=== PATIENT | female | born 1955 | race Caucasian/White ===

== ENCOUNTER → 2017-11-01 15:22 | Outpatient (CLI) | payer BC, MEDICARE, SELFPAY ==
--- NOTE | 2017-11-01 15:33 | MM_ITS ---
. MM Dig screening mamm BI w/CAD CAD Screening ORDERING PHYSICIAN : Federico Dumont PATIENT AGE: 62 years GENDER: Female COMPARISON: Previous mammograms: February 2012, November 2015, May 2009 INDICATION: Routine screening. Does taking female hormones previous biopsy right breast TECHNIQUE: Standard CC and MLO images were obtained. R2 CAD reviewed. FINDINGS: Moderate fibroglandular elements seen diffusely throughout both breast. Yield overall moderate density breast with fibroglandular features most pronounced at the retroareolar region bilateral. RIGHT BREAST:No new areas of significant concern Initially question of possible metallic marker at upper-outer quadrant from percutaneous biopsy but this appears to be a progressing small- hyphen shaped calcification which which is slightly denser and larger over time. Minimal density here on MLO view dissipates on cc view and overall there is been a similar appearance on previous studies. Follow-up in one year would be adequate. LEFT BREAST:No new areas of significant concern Minor area of density at the the lateral left breast on cc view appears to be fibroglandular elements similar to previous studies as well as dissipates on MLO view With the moderately dense character the breast in overall pattern I would encourage and emphasized follow-up screening mammogram in one year particularly in this age patient. Self breast examination may be of benefit as well in this moderately dense breast == IMPRESSION: ===== No new areas of significant concern Moderately dense breast for age but no suspicious lesions evident on today's study However Bilateral follow-up in one year recommended and would be be encouraged & emphasized particularly in this patient BI-RADS Category: 2 Benign Finding(s) RECOMMENDED FOLLOW-UP: 1YR - 1 YEAR FOLLOW-UP (A letter has been sent to the patient regarding results of the study.)
--- NOTE | 2017-11-01 15:34 | XR_ITS ---
XR DEXA axial skeleton HISTORY: ITS.REASON: POST MENOPAUSAL ORDERING PHYSICIAN: Federico Dumont PATIENT AGE: 62 years COMPARISON: 12/09/2015 FINDINGS: The BMD measured at the Right femoral neck is 0.848 g/cm squared with a T score of -1.4. This is considered Osteopenic according to the World Health Organization criteria. Fracture risk is Moderate. Treatment is advised. L1-L4 density is normal with a T score of 0.0. The density of the lumbar spine has increased by 1.3%. The density of the hips is essentially unchanged IMPRESSION: Osteopenia with moderate fracture risk. Recommend follow-up exam October 2019
== END ==
PROVIDERS: PCP Family Medicine; Referring Provider Obstetrics & Gynecology; Visit Provider Family Medicine
DX: Z12.31 Encounter for screening mammogram for malignant neoplasm of breast (principal); Z78.0 Asymptomatic menopausal state; Z13.820 Encounter for screening for osteoporosis
CPT/HCPCS: 77067; 77080

== ENCOUNTER → 2020-05-26 13:31 | Outpatient (POV) | payer BC, MEDICARE, SELFPAY | PROVIDERS: Visit Provider Nurse Practitioner Family | DX: Z00.00 Encounter for general adult medical examination without abnormal findings (principal) ==

== ENCOUNTER → 2020-09-15 15:32 | Outpatient (POV) | payer BC, MEDICARE, SELFPAY ==
[2020-09-15 16:23] LABS: Basophils # 0.1 K/mm3 (0-0.2); Basophils % 0.8 % (0.1-2.0); Eosinophils # 0.2 K/mm3 (0.0-0.4); Eosinophils % 3.5 % (0.1-12.0); Hemoglobin 15.1 g/dL (12.2-16.2); Lymphocytes # 1.8 K/mm3 (0.7-4.5); Lymphocytes % 27.7 % (10-50); Mean Corpuscular HGB Conc 32.9 g/dL (31.8-35.4); Mean Corpuscular Hemoglobin 29.8 pg (27.0-31.2); Mean Corpuscular Volume 90.4 fl (81-99); Mean Platelet Volume 8.1 fl (7.4-10.4); Monocytes # 0.5 K/mm3 (0.1-1.0); Monocytes % 7.3 % (1.7-9.3); Neutrophils # 3.8 K/mm3 (1.8-7.8); Neutrophils % 60.6 % (37.0-80.0); Platelet Count 270 K/mm3 (142-424); Red Blood Count 5.08 M/mm3 (4.20-5.40); Red Cell Distribution Width 13.8 % (11.5-17.5); White Blood Count 6.3 K/mm3 (4.8-10.8)
[2020-09-15 17:50] LABS: Alanine Aminotransferase 19 U/L (12-78); Albumin Level 4.7 g/dl (3.5-5.0); Albumin/Globulin Ratio 1.4 (1.1-1.8); Alkaline Phosphatase 118 U/L (38-126); Anion Gap 11.8 mEq/L (5-15); Aspartate Amino Transferase 25 U/L (14-36); Bilirubin,Total 0.3 mg/dl (0.2-1.3); Blood Urea Nitrogen 23 mg/dl (7-17); Carbon Dioxide 31 mmol/L (22.0-30.0); Chloride 100 mmol/L (98-107); Chol/HDL Ratio 3.1 (1-3.5); Cholesterol 269 mg/dl (140-200); Estimated Glomerular Filt Rate 72 ml/min (>60); GFR (African American) 87 ML/MIN (>60); Globulin 3.3 g/dL (1.3-3.2); Glucose 103 mg/dl (74-100); HDL Cholesterol 86 mg/dl (40-60); Potassium 4.8 mmoL/L (3.5-5.1); Sodium 138 mmol/L (136-145); Triglycerides 169 mg/dl (30-150); VLDL Cholesterol 34 mg/dL (0-40)
[2020-09-15 18:01] LABS: Direct LDL Cholesterol 141.93 mg/dL (100-129)
[2020-09-15 18:11] LABS: Free Thyroxine Index 1.9 ug/dL (5.93-13.13); T4 (Thyroxine) 5.9 ug/dl (5.53-11.0); Triiodothryronine (T3) Uptake 32 % (23.5-40.5)
[2020-09-15 18:25] LABS: Thyroid Stimulating Hormone 4.35 uIU/mL (0.465-4.68)
== END ==
PROVIDERS: Family Medicine; Visit Provider Nurse Practitioner Family
DX: Z00.00 Encounter for general adult medical examination without abnormal findings (principal)
CPT/HCPCS: 36415; 80053; 80061; 80184; 84436; 84443; 84479; 85025

== ENCOUNTER 2022-10-22 21:18 | Emergency (ER) | payer BC, MEDICARE, SELFPAY ==
--- NOTE | 2022-10-22 21:14 | HMH.EDGENADL ---
Discharge Plan Disposition Patient Disposition: Home, Self-Care Condition: Fair Chief Complaint: Skin/Abscess/Foreign Body Prescriptions Prescriptions: No Action cyclobenzaprine 10 MG Tablet 10 mg PO DAILY theophylline 400 MG Tab.Er.24h 400 mg PO DAILY levalbuterol HCl 1.25 MG/3 ML Vial.Neb 1.25 mg PO DAILY phenobarbital 32.4 MG Tablet 32.4 mg PO DAILY paroxetine HCl [Paxil CR] 25 MG Tab.Er.24h 25 mg PO DAILY thyroid (pork) [Vincent Thyroid] 15 MG Tablet 15 mg PO DAILY fluticasone furoate-vilanterol [Breo Ellipta] 1 EACH Blst.W.Dev 1 ea inhalation DAILY meloxicam 15 MG Tablet 15 mg PO DAILY cephalexin 500 MG capsule 500 mg PO TID Qty: 30 0RF Activity Restrictions/Add. Instructions Additional Instructions/Restrictions: Follow-up with your primary care doctor in about 3 days for a wound check. If you notice any signs of infection such as redness or unusual discharge please return to the emergency department immediately. You may have your sutures removed in approximately 7 to 10 days. Keep the wounds clean and dry at all times. You may wash them briefly and or shower. Avoid soaking the wounds in a bathtub, hot tub, marion, river, ocean. You can take [id number] Tylenol and/or Motrin for your pain. Clinical Impressions Clinical Impression: Laceration Instructions Patient Instructions: DI for Laceration Repair Discharge ED Provider: Soledad Bass Adult HPI General Chief complaint: Skin/Abscess/Foreign Body Stated complaint: Goat Attack Time Seen by Provider: 10/22/22 21:14 History of Present Illness HPI narrative: The patient presents to the emergency department by ambulance after having been attacked by a goat. She complains of injuries to her buttocks, right posterior leg, and left arm. She denies any other injuries. She was ambulatory at the scene. She did not lose consciousness. Her last tetanus immunization was within the last 8 years. Related Data Home Medications Medication Instructions Recorded Confirmed cyclobenzaprine 10 mg tablet 10 mg PO DAILY Supplement 12/14/17 12/14/17 fluticasone furoate 200 1 ea inhalation DAILY Supplement 12/14/17 12/14/17 mcg-vilanterol 25 mcg/dose inhalation powder (Breo Ellipta) levalbuterol HCl 1.25 mg/3 mL 1.25 mg PO DAILY Supplement 12/14/17 12/14/17 solution for nebulization meloxicam 15 mg tablet 15 mg PO DAILY Supplement 12/14/17 12/14/17 paroxetine HCl 25 mg 25 mg PO DAILY Supplement 12/14/17 12/14/17 tablet,extended release 24 hr (Paxil CR) phenobarbital 32.4 mg tablet 32.4 mg PO DAILY Supplement 12/14/17 12/14/17 theophylline 400 mg 400 mg PO DAILY Supplement 12/14/17 12/14/17 tablet,extended release 24 hr thyroid (pork) 15 mg tablet 15 mg PO DAILY Supplement 12/14/17 12/14/17 (Vincent Thyroid) Previous Rx's Medication Instructions Recorded cephalexin 500 mg capsule 500 mg PO TID #30 caps 12/14/17 Allergies Allergy/AdvReac Type Severity Reaction Status Date / Time Formoterol Allergy Severe S-DIFF. Uncoded 06/28/17 15:21 BREATHING Phenytoin Allergy Intermediate I-RASH Uncoded 06/28/17 15:21 [facility] Disclaimer: The information contained in this section may have been updated after the patient was seen, as this information can be updated by other users. Social History Smoking Status: Never smoker alcohol intake: never Travel in the last 8 weeks: None ROS Obtained: Yes All systems reviewed & no additional complaints except as documented Physical Exam General General appearance: alert Head Head exam: atraumatic Eye Eye exam: Present normal appearance ENT ENT exam: Present normal exam Neck Neck exam: Present normal inspection, full ROM and trachea midline; Absent tenderness or meningismus Chest Chest inspection: Present normal inspection and symmetric chest wall rise; Absent tenderness Respiratory Respiratory exam: Presen
[2022-10-22 21:18] VITALS: BP 148/84; PULSE 84; RESP 19; TEMP 36.9; O2SAT 93; BMI 27.0
--- NOTE | 2022-10-22 22:30 | PC.NURSE ---
Dr. Bass at to suture wounds
[2022-10-22 23:15] VITALS: BP 131/72; PULSE 68; RESP 20; TEMP 36.7; O2SAT 95
== END 2022-10-22 23:16 | disposition home or self-care (01) ==
PROVIDERS: Emergency Provider Emergency Medicine; PCP Family Medicine
DX: S41.112A Laceration without foreign body of left upper arm, initial encounter (principal); S81.812A Laceration without foreign body, left lower leg, initial encounter; W55.32XA Struck by other hoof stock, initial encounter
CPT/HCPCS: 12005; 99283

== ENCOUNTER → 2022-12-24 09:28 | Outpatient (CLI) | payer MEDICARE, SELFPAY ==
--- NOTE | 2022-12-24 09:32 | MM_ITS ---
PROCEDURE INFORMATION: Exam: MG Bilateral Screening 3D Mammography Exam date and time: 12/24/2022 9:32 AM Age: 67 years old Clinical indication: Screening mammogram TECHNIQUE: Imaging protocol: Bilateral Screening tomosynthesis and 2D mammography including computer-aided detection (CAD) when performed. COMPARISON: 1. MG SCBI MM Dig screening mamm BI w/CAD 11/01/2017 3:41 PM 2. MG DMSB DIG MAMM-SCREEN ILAN 12/09/2015 8:47 AM 3. MG DMSB DIGITAL MAMM-SCREEN BILATERAL 02/16/2012 1:06 PM 4. MG DIGMAMMS MAMMOGRAM SCREEN-HEAD ANIMAL KEEPER N/C 05/19/2009 1:34 PM FINDINGS: MAMMOGRAPHY: Breast composition: There are scattered areas of fibroglandular density. Mass: None. Architectural distortion: No new or suspicious architectural distortion. Calcifications: No new or suspicious calcifications are present Asymmetric density: No new or suspicious asymmetric density is present Skin thickening: None. Axillary adenopathy: None. IMPRESSION: No mammographic evidence of malignancy. Recommend annual screening mammography unless otherwise clinically indicated. ASSESSMENT: BI-RADS category 1: Negative
--- NOTE | 2022-12-24 09:33 | XR_ITS ---
FINAL REPORT TECHNIQUE: Bone mineral density was calculated of the lumbar spine and hip. CLINICAL HISTORY: post menopausal FINDINGS: Using L1-4, the bone mineral density of the spine is 1.036 g/cm2, corresponding to T-score of -0.1, likely falsely elevated secondary to hypertrophic changes.. Using the left hip, the bone mineral density of the femoral neck is 0.685 g/cm2, corresponding to a T-score of -1.5. Using the right hip, the bone mineral density of the femoral neck is 0.694 g/cm2, corresponding to a T-score of -1.4. NOTE: T-score: Standard deviation compared with peak bone mass of young adult mean. *Following the recommendations of the International Society of Bone densitometry, classification of hip BMD is based on the lower of two T-scores; total hip or femoral neck. IMPRESSION: Diminished bone mineral density consistent with low bone density. FRAX data reports major osteoporotic fracture of 15% and hip fracture 1.9%. Reviewed, Interpreted and Dictated by Giovany Cooper III, MD Transcribed by Juana Nolasco Authenticated and . [facility]
== END ==
PROVIDERS: PCP Family Medicine; Visit Provider Family Medicine
DX: Z12.31 Encounter for screening mammogram for malignant neoplasm of breast (principal); Z78.0 Asymptomatic menopausal state; Z13.820 Encounter for screening for osteoporosis
CPT/HCPCS: 77063; 77067; 77080

== ENCOUNTER → 2023-02-25 14:15 | Outpatient (CLI) | payer MEDICARE, MEDICAID, SELFPAY ==
[2023-02-25 16:08] LABS: Hematocrit 44.4 % (37.0-47.0); Hemoglobin 14.5 g/dL (12.2-16.2); Mean Corpuscular HGB Conc 32.7 g/dL (31.8-35.4); Mean Corpuscular Hemoglobin 30.3 pg (27.0-31.2); Mean Corpuscular Volume 92.9 fl (81-99); Platelet Count 276 K/mm3 (142-424); Red Blood Count 4.78 M/mm3 (4.20-5.40); White Blood Count 6.2 K/mm3 (4.8-10.8)
[2023-02-25 16:56] LABS: Alanine Aminotransferase 22 U/L (12-78); Albumin Level 4.3 g/dl (3.5-5.0); Albumin/Globulin Ratio 1.4 (1.1-1.8); Alkaline Phosphatase 109 U/L (38-126); Anion Gap 10.4 mEq/L (5-15); Aspartate Amino Transferase 29 U/L (14-36); Bilirubin,Total 0.2 mg/dl (0.2-1.3); Blood Urea Nitrogen 18 mg/dl (7-17); Calcium 10.4 mg/dl (8.4-10.2); Carbon Dioxide 30 mmol/L (22.0-30.0); Chloride 102 mmol/L (98-107); Estimated Glomerular Filt Rate 83 ml/min (>60); GFR (African American) 101 ML/MIN (>60); Glucose 90 mg/dl (74-100); Potassium 4.4 mmoL/L (3.5-5.1); Sodium 138 mmol/L (136-145); Total Protein,Serum 7.3 g/dl (6.3-8.2)
[2023-02-25 17:14] LABS: T4 (Thyroxine) 6.9 ug/dl (5.53-11.0)
[2023-02-25 17:20] LABS: Amphetamine/Metha Screen,Urine Negative ng/ml (<1000)
[2023-02-25 17:21] LABS: Barbiturates Screen,Urine Positive ng/ml (<200); Benzodiazepines Screen,Urine Negative ng/ml (<200)
[2023-02-25 17:22] LABS: Cannabinoid Screen,Urine Negative ng/ml (<50)
[2023-02-25 17:23] LABS: Cocaine Screen,Urine Negative ng/ml (<300)
[2023-02-25 17:27] LABS: Thyroid Stimulating Hormone 3.47 uIU/mL (0.465-4.68)
[2023-02-25 17:47] LABS: Vitamin B12 333 pg/mL (239-931)
[2023-02-25 18:20] LABS: Methadone Screen,Urine Negative ng/ml (<300); Opiate Screen,Urine Negative ng/ml (<300)
[2023-02-25 18:21] LABS: Phencyclidine Screen,Urine Negative ng/ml (<25)
[2023-02-27 09:53] LABS: Triiodothyronine (T3) Total 101 ng/dL (71-180)
== END ==
PROVIDERS: PCP Family Medicine; Visit Provider Psychiatry & Neurology Psychiatry
DX: G47.10 Hypersomnia, unspecified (principal); F33.0 Major depressive disorder, recurrent, mild; Z79.899 Other long term (current) drug therapy; G47.33 Obstructive sleep apnea (adult) (pediatric); R06.83 Snoring
CPT/HCPCS: 36415; 80053; 80305; 82607; 84436; 84443; 84480; 85014; 85018; 85048; 85049; G0399

== ENCOUNTER → 2023-04-05 13:02 | Outpatient (CLI) | payer MEDICARE, MEDICAID, SELFPAY ==
--- NOTE | 2023-04-05 13:06 | XR_ITS ---
FINAL REPORT CLINICAL HISTORY: right shoulder pain FINDINGS: 2 views of the right shoulder were obtained. There is no prior exam for comparison. There is no fracture or dislocation. There is degenerative joint disease. Soft tissues are normal. IMPRESSION: No acute osseous abnormality of the right shoulder. Reviewed, Interpreted and Dictated by Chasity Abbott MD Transcribed by Audie Mendes Authenticated and [facility]
== END ==
PROVIDERS: PCP Family Medicine; Visit Provider Orthopaedic Surgery
DX: M25.511 Pain in right shoulder (principal)
CPT/HCPCS: 73030

== ENCOUNTER → 2023-04-13 07:29 | Outpatient (CLI) | payer MEDICARE, MEDICAID, SELFPAY ==
--- NOTE | 2023-04-13 07:29 | MR_ITS ---
FINAL REPORT CLINICAL HISTORY: right shoulder pain, limited rom, no injury COMPARISON: None FINDINGS: Multiplanar MR imaging of the right shoulder was performed without contrast. There is motion artifact on many of the images decreasing sensitivity of this exam. There is a partial-thickness articular surface supraspinatus tear greater than 50% thickness and a partial-thickness articular surface infraspinatus tendon tear greater than 50% thickness. There is mild AC joint arthrosis. A small amount of fluid is seen in the subacromial/subdeltoid bursa. There is abnormal signal at the base of the superior labrum worrisome for SLAP tear. The long head of the biceps tendon is intact. A small glenohumeral joint effusion is seen. There is thickening of the joint capsule at the axillary recess consistent with adhesive capsulitis. There is no evidence of fracture or dislocation. Subchondral cysts are noted in the superior humeral head. The musculature is intact. There is no evidence of soft tissue mass. IMPRESSION: Greater than 50% thickness tears of the supraspinatus and infraspinatus tendons. Findings worrisome for SLAP tear. Adhesive capsulitis. Reviewed, Interpreted and Dictated by Giovany Cooper III, MD Transcribed by Lisa Sosa Authenticated and [facility]
== END ==
PROVIDERS: PCP Family Medicine; Visit Provider Orthopaedic Surgery
DX: M75.81 Other shoulder lesions, right shoulder (principal); M25.511 Pain in right shoulder
CPT/HCPCS: 73221

== ENCOUNTER 2023-05-30 13:44 | Emergency (ER) | payer MEDICARE, MEDICAID, SELFPAY ==
[2023-05-30 13:51] VITALS: PULSE 95; RESP 22; TEMP 37.3; O2SAT 94; BMI 25.7
--- NOTE | 2023-05-30 14:01 | XR_ITS ---
FINAL REPORT CLINICAL HISTORY: Shortness of breath and cough COMPARISON: None FINDINGS: Two views of the chest were obtained. The heart size and pulmonary vascularity are within normal limits. The mediastinum is normal. Bibasilar pulmonary opacities are favored to represent atelectasis. There is no pneumothorax. The bony thorax is intact. IMPRESSION: Bibasilar atelectasis. Reviewed, Interpreted and Dictated by Giovany Cooper III, MD Transcribed by Lisa Sosa Authenticated and [facility]
--- NOTE | 2023-05-30 14:12 | ECG_ITS ---
APPROVED REPORT Exam: Resting ECG HR:101 bpm ECG Measurements Heart Rate 101 AXES TN 140 P 70 QRSd 72 QRS -7 QT 298 T 26 QTc 356 Conclusion SINUS TACHYCARDIA POSSIBLE LEFT ATRIAL ENLARGEMENT [-0.1mV P-WAVE IN V1/V2] INDETERMINATE AXIS LOW QRS VOLTAGE IN PRECORDIAL LEADS [QRS DEFLECTION < 1.0 mV IN CHEST LEADS] PATTERN CONSISTENT WITH PULMONARY DISEASE POSSIBLE RIGHT VENTRICULAR CONDUCTION DELAY [RSR (QR) IN V1/V2] PROBABLE INFERIOR MYOCARDIAL INFARCTION , PROBABLY OLD [35 ms Q WAVE IN II/aVF] ABNORMAL ECG UNCONFIRMED REPORT Electronically signed by : Mark Ibrahim MD 06/01/2023 17:14:36
--- NOTE | 2023-05-30 14:25 | PC.NURSE ---
rounded on pt, pt going to xray for imaging
[2023-05-30 14:30] VITALS: PULSE 97; O2SAT 94
[2023-05-30 14:33] LABS: Basophils # 0.1 K/mm3 (0-0.2); Basophils % 0.7 % (0.1-2.0); Eosinophils # 0.2 K/mm3 (0.0-0.4); Eosinophils % 3.3 % (0.1-12.0); Hematocrit 44.5 % (37.0-47.0); Hemoglobin 14.7 g/dL (12.2-16.2); Lymphocytes # 1.5 K/mm3 (0.7-4.5); Lymphocytes % 21.5 % (10-50); Mean Corpuscular Hemoglobin 30.9 pg (27.0-31.2); Mean Corpuscular Volume 93.8 fl (81-99); Mean Platelet Volume 7.9 fl (7.4-10.4); Monocytes # 0.5 K/mm3 (0.1-1.0); Monocytes % 7.7 % (1.7-9.3); Neutrophils # 4.5 K/mm3 (1.8-7.8); Neutrophils % 66.8 % (37.0-80.0); Platelet Count 242 K/mm3 (142-424); Red Blood Count 4.75 M/mm3 (4.20-5.40); White Blood Count 6.7 K/mm3 (4.8-10.8)
[2023-05-30 14:54] LABS: Alanine Aminotransferase 29 U/L (12-78); Albumin Level 4.3 g/dl (3.5-5.0); Albumin/Globulin Ratio 1.4 (1.1-1.8); Alkaline Phosphatase 116 U/L (38-126); Anion Gap 11.5 mEq/L (5-15); Aspartate Amino Transferase 42 U/L (14-36); Bilirubin,Total 0.2 mg/dl (0.2-1.3); Blood Urea Nitrogen 13 mg/dl (7-17); Calcium 10.1 mg/dl (8.4-10.2); Carbon Dioxide 29 mmol/L (22.0-30.0); Chloride 99 mmol/L (98-107); Creatinine Clearance Estimated 57 mL/min (50-200); Estimated Glomerular Filt Rate 71 ml/min (>60); GFR (African American) 86 ML/MIN (>60); Globulin 3.1 g/dL (1.3-3.2); Glucose 126 mg/dl (74-100); Potassium 3.5 mmoL/L (3.5-5.1); Sodium 136 mmol/L (136-145); Total Protein,Serum 7.4 g/dl (6.3-8.2)
[2023-05-30 15:20] VITALS: BP 132/89; PULSE 90; RESP 20; TEMP 37.3; O2SAT 94
[2023-05-30 15:24] LABS: Troponin I < 0.01 ng/ml (0.00-0.034)
--- NOTE | 2023-05-30 15:30 | PC.NURSE ---
Discharge instructions provided to patient with no further questions. Patient ambulated out of ED no acute distress noted at this time.
--- NOTE | 2023-05-30 16:49 | HMH.EDGENADL ---
Discharge Plan Disposition Patient Disposition: Home, Self-Care Condition: Good Prescriptions Prescriptions: New doxycycline hyclate 100 mg capsule 100 mg PO BID 10 Days Qty: 20 0RF prednisone 50 mg tablet 50 mg PO DAILY 5 Days Qty: 5 0RF ipratropium-albuterol 0.5 mg-3 mg(2.5 mg base)/3 mL solution for nebulization 3 ml inhalation Q4H PRN (Reason: wheezing) Qty: 90 0RF No Action cyclobenzaprine 10 MG tablet 10 mg PO DAILY levalbuterol HCl 1.25 MG/3 ML solution for nebulization 1.25 mg PO DAILY phenobarbital 32.4 MG tablet 32.4 mg PO DAILY paroxetine HCl [Paxil CR] 25 MG tablet extended release 24 hr 25 mg PO DAILY fluticasone furoate-vilanterol [Breo Ellipta] 1 EACH blister with device 1 ea inhalation DAILY meloxicam 15 MG tablet 15 mg PO DAILY trazodone 50 mg tablet 50 mg PO HS PRN (Reason: Sleep) Trelegy Ellipta 200-62.5-25 mcg blister with device 1 inh INHALATION DAILY Referrals Follow up/Referrals: Rashad Dumont MD [Primary Care Provider] - See instructions Activity Restrictions/Add. Instructions Additional Instructions/Restrictions: You were evaluated in the emergency department today. 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 Follow-up with your primary care provider over the next 3 days. Return to the emergency department for new or worsening symptoms. Clinical Impressions Clinical Impression: Acute exacerbation of chronic obstructive pulmonary disease Instructions Patient Instructions: DI for Chronic Obstructive Pulmonary Disease Discharge ED Provider: Leigha Aguirre General Adult HPI General Chief complaint: Shortness of Breath/Dyspnea Stated complaint: SOA Time Seen by Provider: 05/30/23 14:27 Mode of Arrival: Ambulatory Source of Information: Patient Limitations: No Limitations Description of Symptoms (Recalled from ER Triage Doc. by RN): c/o soa since Tuesday that has increased t/o the last few days. States she is coughing up white/yellow mucus yesterday has cleared up today with no mucus. History of Present Illness HPI narrative: This patient is a 68-year-old female with a history of COPD presenting to the emergency department for evaluation with concern for a COPD exacerbation. She states that she has cough and wheezing since Tuesday, and this feels the same as all of her prior COPD exacerbations. She states that she will states better after antibiotics and steroids. She denies any chest pain, abdominal pain, or other concerns. She has otherwise been well. Related Data Home Medications Medication Instructions Recorded Confirmed cyclobenzaprine 10 mg tablet 10 mg PO DAILY Supplement 12/14/17 04/05/23 fluticasone furoate 200 1 ea inhalation DAILY Supplement 12/14/17 04/05/23 mcg-vilanterol 25 mcg/dose inhalation powder (Breo Ellipta) levalbuterol HCl 1.25 mg/3 mL 1.25 mg PO DAILY Supplement 12/14/17 04/05/23 solution for nebulization meloxicam 15 mg tablet 15 mg PO DAILY Supplement 12/14/17 04/05/23 paroxetine HCl 25 mg 25 mg PO DAILY Supplement 12/14/17 04/05/23 tablet,extended release 24 hr (Paxil CR) phenobarbital 32.4 mg tablet 32.4 mg PO DAILY Supplement 12/14/17 04/05/23 fluticasone fur. 200 mcg-umeclid 1 inh inhalation DAILY COPD 10/22/22 04/05/23 62.5 mcg-vilant 25 mcg inhalat.powder (Trelegy Ellipta) trazodone 50 mg tablet 50 mg PO HS PRN Sleep 10/22/22 04/05/23 Previous Rx's Medication Instructions Recorded doxycycline hyclate 100 mg capsule 100 mg PO BID 10 days #20 caps 05/30/23 ipratropium 0.5 mg-albuterol 3 mg 3 ml inhalation Q4H PRN wheezing 05/30/23 (2.5 mg base)/3 mL nebulization #90 mL soln prednisone 50 mg tablet 50 mg PO DAILY 5 days #5 tabs 05/30/23 Allergies Allergy/AdvReac Type Severity Reaction Status Date / Time Formoterol Allergy Severe S-DIFF. Uncoded 04/05/23 13:41 BREATHING Phenytoin Allergy Intermed
== END 2023-05-30 15:23 | disposition home or self-care (01) ==
PROVIDERS: Emergency Provider Emergency Medicine; PCP Family Medicine
DX: J44.1 Chronic obstructive pulmonary disease with (acute) exacerbation (principal); R05.9 Cough, unspecified; R06.2 Wheezing; R00.0 Tachycardia, unspecified
CPT/HCPCS: 71046; 80053; 84484; 85025; 93005; 96374; 99284

== ENCOUNTER 2024-01-25 20:13 | Emergency (ER) | payer MEDICARE, SELFPAY ==
[2024-01-25 20:15] VITALS: BP 152/93; PULSE 100; RESP 18; TEMP 36.9; O2SAT 95; BMI 26.6
--- NOTE | 2024-01-25 20:28 | ED_ITS ---
<Statement entered by Sandy Carr MD - 01/25/24 22:57> I was consulted by the DONNA, and we discussed the complexity of the problems being addressed. I approved the treatment and management plan for this patient's care in the emergency department, thus performing a substantive portion of the medical decision making. Sandy Carr MD, LYNDSEY, FACEP Discharge Plan Disposition Patient Disposition: Home, Self-Care Condition: Good Prescriptions Prescriptions: New amoxicillin-pot clavulanate 875-125 mg tablet 1 tab PO BID Qty: 20 0RF azithromycin 500 mg tablet See Rx Instructions .ROUTE .COMPLEX Qty: 9 0RF Rx Instructions: For 250 mg dose pack: take 500 mg today (day 1), then 250 mg for 4 days (days 2-5) No Action theophylline 400 mg tablet extended release 24 hr 400 mg PO DAILY levalbuterol tartrate [Xopenex HFA] 45 mcg/actuation HFA aerosol inhaler 2 puff inhalation Q4-6H PRN ipratropium-albuterol 0.5 mg-3 mg(2.5 mg base)/3 mL solution for nebulization 3 ml inhalation Q4H PRN (Reason: wheezing) Qty: 90 0RF cyclobenzaprine 10 MG tablet 10 mg PO DAILY phenobarbital 32.4 MG tablet 32.4 mg PO DAILY paroxetine HCl [Paxil CR] 25 MG tablet extended release 24 hr 25 mg PO DAILY meloxicam 15 MG tablet 15 mg PO DAILY Trelegy Ellipta 200-62.5-25 mcg blister with device 1 inh INHALATION DAILY Referrals Follow up/Referrals: Rashad Dumont MD [Primary Care Provider] - See instructions Activity Restrictions/Add. Instructions Additional Instructions/Restrictions: Please return to the infusion center on days 3 7 and 14 for repeat vaccination. Follow-up with your PCP within 48 hours recheck your wound. Return to ER for any worsening signs or symptoms as needed. Clinical Impressions Clinical Impression: Cat bite Instructions Patient Instructions: Animal Bites Discharge ED Provider: Sandy Carr General Adult HPI General Chief complaint: Animal Bite Stated complaint: biten by a cat , left leg Time Seen by Provider: 01/25/24 20:27 History of Present Illness HPI narrative: Patient presents for evaluation of a cat bite. Patient was bitten by a outdoor feral cat of hers. She is unaware if the patient is currently up-to-date on shots but may have been at some point previously. It is a cat at her residence. He bit her in the left lower extremity as well as scratch that leg. She currently reports some pain but no numbness tingling drainage. The tach Approximately 2 hours prior to arrival. Related Data Home Medications Medication Instructions Recorded Confirmed cyclobenzaprine 10 mg tablet 10 mg PO DAILY Supplement 12/14/17 10/27/23 meloxicam 15 mg tablet 15 mg PO DAILY Supplement 12/14/17 10/27/23 paroxetine HCl 25 mg 25 mg PO DAILY Supplement 12/14/17 10/27/23 tablet,extended release 24 hr (Paxil CR) phenobarbital 32.4 mg tablet 32.4 mg PO DAILY Supplement 12/14/17 10/27/23 fluticasone fur. 200 mcg-umeclid 1 inh inhalation DAILY COPD 10/22/22 10/27/23 62.5 mcg-vilant 25 mcg inhalat.powder (Trelegy Ellipta) levalbuterol tartrate 45 2 puff inhalation Q4-6H PRN 10/27/23 10/27/23 mcg/actuation aerosol inhaler (Xopenex HFA) theophylline 400 mg 400 mg PO DAILY 10/27/23 10/27/23 tablet,extended release 24 hr Previous Rx's Medication Instructions Recorded ipratropium 0.5 mg-albuterol 3 mg 3 ml inhalation Q4H PRN wheezing 05/30/23 (2.5 mg base)/3 mL nebulization #90 mL soln amoxicillin 875 mg-potassium 1 tab PO BID #20 tabs 01/25/24 clavulanate 125 mg tablet azithromycin 500 mg tablet See Rx Instructions PO .COMPLEX #9 01/25/24 tabs Allergies Allergy/AdvReac Type Severity Reaction Status Date / Time Formoterol Allergy Severe S-DIFF. Uncoded 10/27/23 15:57 BREATHING Phenytoin Allergy Intermediate I-RASH Uncoded 10/27/23 15:57 [facility] Disclaimer: The information contained in this section may have been updated after the patient was seen, as this information can be updated by other users. Medical History Impingement of right shoulder Foot pain Asthma Surgical History History of tubal ligation History of tonsillectomy History of colonoscopy History of esophagogastroduodenoscopy (EGD) History of right knee joint replacement Family History (Updated 10/27/23 @ 16:03 by Pau Holly) Other No significant family history Social History Smoking Status: Never smoker alcohol intake: never current occupational status: retired Travel in the last 8 weeks: None ROS Obtained: Yes Systems reviewed as appropriate & no additional complaints except as documented Physical Exam General General appearance: alert and in no apparent distress Respiratory Respiratory exam: Present normal lung sounds bilaterally Cardiovascular Cardiovascular exam: Present regular rate and normal rhythm Neurological Exam Neurological exam: Present alert and oriented X3 Expanded Skin Exam Body image: 2 1. Triangular puncture and linear, puncture 2. 2 small puncture wounds Medical Decision Making Medical Records Medical records reviewed: Yes I reviewed the patient's medical records. [place] Inquiry Pt receiving controlled substance: No Vital Signs: 01/25/24 20:15 Temperature 98.5 F Temperature Source Oral Pulse Rate [Right] 100 H Respiratory Rate 18 Blood Pressure [Right Arm] 152/93 H Blood Pressure Mean [Right Arm] 112 Blood Pressure Source [Right Arm] Automatic Cuff 02 Sat by Pulse Oximetry 95 Oxygen Delivery Method Room Air Lab Data Lab results reviewed: Yes I reviewed the patient's lab results. Orders (Tests/Meds): ED MEDICATIONS Generic Name Dose Route Start Last Admin Trade Name Freq PRN Reason Stop Dose Admin Azithromycin 500 mg 01/25/24 21:27 Azithromycin 250mg Tablet PO 01/25/24 21:28 ONCE ONE Discontinued Medications Generic Name Dose Route Start Last Admin Trade Name Freq PRN Reason Stop Dose Admin Amoxicillin/Clavulanate Potassium 1 each 01/25/24 20:32 01/25/24 21:23 Amoxicillin/Clavulanate Potassium 875/125mg Tablet PO 01/25/24 20:33 1 each ONCE ONE Administration Rabies Immune Globulin 1,380 unit 01/25/24 20:40 01/25/24 21:22 Rabies Immune Globulin/Pf 300 Unit/Ml Vial IM 01/25/24 20:41 1,380 unit ONCE ONE Administration Rabies Vaccine 2.5 unit 01/25/24 20:40 01/25/24 21:19 Rabies Vaccine (Pcec)/Pf 2.5 Unit Vial IM 01/25/24 20:41 2.5 unit .ONCE ONE Administration Tetanus/Reduced Diphtheria/Acell Pertussis 0.5 ml 01/25/24 20:32 01/25/24 21:21 Tet/Diphth/Pert-Adult 0.5ml Syringe IM 01/25/24 20:33 0.5 ml .ONCE ONE Administration Medical Decision Narrative: In summary patient is a 68-year-old female who presents to the emergency department for evaluation of cat bite. Patient is hemodynamically stable upon arrival, afebrile. Physical exam is remarkable for a bite with 4 puncture wounds in the medial aspect of her left calf along with several other superficial scratches but no other punctures.. Differential diagnosis includes cat bite versus muscle injury versus cat scratch fever. Initial workup was considered but as patient has full range of motion and is neurovascularly intact was deferred. Initial interventions include Tdap rabies Ig rabies vaccine Augmentin and azithromycin. Rabies immunoglobulin infused in the bite area by myself. Prescription sent to her pharmacy for Augmentin and azithromycin. Patient to follow-up with PCP in 48 hours for recheck. Patient will need revaccination on days 3 7 and 14 Critical Care Critical Care Time Critical Care Time: No
[2024-01-25] MEDS: RABIES VACCINE (PCEC)/PF 2.5 UNIT VIAL IM (21:19)
[2024-01-25] MEDS: TET/DIPHTH/PERT-ADULT 0.5ML SYRINGE 0.5 ML IM (21:21)
[2024-01-25] MEDS: RABIES IMMUNE GLOBULIN/PF 300 UNIT/ML VIAL 1380 UNIT IM (21:22)
[2024-01-25] MEDS: AMOXICILLIN/CLAVULANATE POTASSIUM 875/125MG TABLET 1 EACH PO (21:23)
[2024-01-25] MEDS: AZITHROMYCIN 250MG TABLET 500 MG PO (21:46)
[2024-01-25 22:13] VITALS: BP 128/74; PULSE 68; RESP 16; TEMP 36.6; O2SAT 98
== END 2024-01-25 22:14 | disposition home or self-care (01) ==
PROVIDERS: Emergency Provider Student in an Organized Health Care Education/Training Program; PCP Family Medicine
DX: S81.832A Puncture wound without foreign body, left lower leg, initial encounter (principal); W55.01XA Bitten by cat, initial encounter; Z23 Encounter for immunization
CPT/HCPCS: 90375; 90471; 90675; 90715; 96372; 99283

== ENCOUNTER 2024-03-30 12:14 | Outpatient (CLI) | payer MEDICARE, SELFPAY ==
[2024-03-30 13:16] LABS: Albumin Level 4.2 g/dl (3.5-5.0)
[2024-03-30 13:19] LABS: Calcium 10.7 mg/dl (8.4-10.2); Creatinine Clearance Estimated 67 mL/min (50-200); Estimated Glomerular Filt Rate 62 ml/min (>60); GFR (African American) 75 ML/MIN (>60)
[2024-03-30] MEDS: 0.9 % SODIUM CHLORIDE 50 ML 100 ML IV (13:40)
[2024-03-30] MEDS: ZOLEDRONIC ACID/MANNITOL-WATER 5 MG/100 ML PGGYBK.BTL 400 MG IV (13:40)
[2024-03-30 13:45] VITALS: BP 124/71; PULSE 82; RESP 18; O2SAT 99
[2024-03-30 14:10] VITALS: BP 128/72; PULSE 84; RESP 18; O2SAT 99
== END 2024-03-30 14:10 | disposition home or self-care (01) ==
LOC: INF 12:16
PROVIDERS: PCP Family Medicine; Visit Provider Family Medicine
DX: M81.0 Age-related osteoporosis without current pathological fracture (principal)
CPT/HCPCS: 82040; 82310; 82565; 96374; J3489

== ENCOUNTER 2024-08-14 13:49 | Outpatient (CLI) | payer MEDICARE, SELFPAY ==
--- NOTE | 2024-08-14 13:58 | XR_ITS ---
FINAL REPORT CLINICAL HISTORY: knee pain FINDINGS: Left knee Three views were obtained. There is no fracture or dislocation. There are mild hypertrophic changes at the medial compartment. No soft tissue abnormality is identified. IMPRESSION: Mild degenerative changes. Reviewed, Interpreted and Dictated by Jose Hanna MD Transcribed by Juana Nolasco Authenticated and [facility]
--- NOTE | 2024-08-14 13:58 | XR_ITS ---
FINAL REPORT CLINICAL HISTORY: knee pain FINDINGS: Right knee Two views were obtained. There is no fracture or dislocation. Right knee prosthesis is in anatomic alignment. No acute soft tissue abnormality is identified. IMPRESSION: No acute process. Reviewed, Interpreted and Dictated by Jose Hanna MD Transcribed by Juana Nolasco Authenticated and [facility]
== END 2024-08-14 23:59 | disposition home or self-care (01) ==
PROVIDERS: PCP Family Medicine; Visit Provider Orthopaedic Surgery
DX: M25.561 Pain in right knee (principal); M25.562 Pain in left knee
CPT/HCPCS: 73562